=== PATIENT | female | born 1945 | race Caucasian/White ===

== ENCOUNTER 2023-07-15 10:38 | Observation (INO) ==
--- NOTE | 2023-07-15 10:48 | DR.CP ---
HPI Time Seen Time Seen by Provider: 07/15/23 10:47 COVID-19 Coronavirus risk:travel/contact w/high risk person: No Has patient experienced Coronavirus symptoms: No Reviewed Nurses Notes Review: Yes PMH PMH Past Medical History: Anemia (20 days ago diagnosed), Arthritis and Headaches (chronic headaches) Past Surgical History: Yes Surgical History: Hysterectomy Family History Family Medical History: Hypertension Social History Do you use any recreational Drugs:: No PE Vitals Vitals: Vital Signs Temperature 97.9 F Pulse Rate 66 Pulse Rate 68 Pulse Rate 75 Pulse Rate 66 Pulse Rate 65 Pulse Rate 68 Pulse Rate 87 Pulse Rate 73 Pulse Rate 74 Pulse Rate 78 Pulse Rate 78 Pulse Rate 76 Pulse Rate 80 Respiratory Rate 15 Respiratory Rate 18 Respiratory Rate 25 Respiratory Rate 16 Respiratory Rate 14 Respiratory Rate 14 Respiratory Rate 40 Respiratory Rate 13 Respiratory Rate 14 Respiratory Rate 15 Respiratory Rate 14 Respiratory Rate 15 Respiratory Rate 20 Blood Pressure 134/61 Blood Pressure 142/63 Blood Pressure 154/68 O2 Sat by Pulse Oximetry 98 O2 Sat by Pulse Oximetry 98 O2 Sat by Pulse Oximetry 98 O2 Sat by Pulse Oximetry 97 O2 Sat by Pulse Oximetry 97 O2 Sat by Pulse Oximetry 98 O2 Sat by Pulse Oximetry 99 O2 Sat by Pulse Oximetry 96 O2 Sat by Pulse Oximetry 96 O2 Sat by Pulse Oximetry 96 O2 Sat by Pulse Oximetry 98 O2 Sat by Pulse Oximetry 97 O2 Sat by Pulse Oximetry 99 [facility]OR Labs Reviewed 07/16/23 05:08 07/16/23 05:08 Laboratory: WBC 6.4 X10^3/uL (3.6-10.0) 07/15/23 10:52 RBC 4.38 X10^6/uL (3.5-5.4) 07/15/23 10:52 Hgb 13.0 g/dL (12.0-16.0) 07/15/23 10:52 Hct 39.1 % (36.0-47.0) 07/15/23 10:52 MCV 89.2 fL (80.0-100.0) 07/15/23 10:52 MCH 29.8 pg (27.0-34.0) 07/15/23 10:52 MCHC 33.4 g/dL (33.0-35.0) 07/15/23 10:52 RDW 14.4 % (11.6-16.5) 07/15/23 10:52 Plt Count 284 X10^3/uL (150.0-450.0) 07/15/23 10:52 MPV 7.7 fL (7.4-11.0) 07/15/23 10:52 Neut % (Auto) 62.5 % (42.0-75.0) 07/15/23 10:52 Lymph % (Auto) 23.3 % (21.0-51.0) 07/15/23 10:52 Green % (Auto) 9.3 % (0.0-13.0) 07/15/23 10:52 Eos % (Auto) 4.1 % (0.9-2.9) H 07/15/23 10:52 Baso % (Auto) 0.8 % (0.2-1.0) 07/15/23 10:52 Neut # (Auto) 4.0 x10^3/uL (2.2-4.8) 07/15/23 10:52 Lymph # (Auto) 1.5 X10^3/uL (1.3-2.9) 07/15/23 10:52 Green # (Auto) 0.6 x10^3/uL (0.3-0.8) 07/15/23 10:52 Eos # (Auto) 0.3 x10^3/uL (0.0-0.2) H 07/15/23 10:52 Baso # (Auto) 0.1 X10^3/uL (0.0-0.1) 07/15/23 10:52 Absolute Nucleated RBC 0.1 /100WBC 07/15/23 10:52 Sodium 139 mmol/L (136-145) 07/15/23 10:52 Corrected Sodium TNP 07/15/23 10:52 Potassium 3.9 mmol/L (3.5-5.1) 07/15/23 10:52 Chloride 103 mmol/L (98-107) 07/15/23 10:52 Carbon Dioxide 28.2 mmol/L (21-32) 07/15/23 10:52 BUN 21 mg/dL (7-18) H 07/15/23 10:52 Creatinine 1.18 mg/dL (0.55-1.02) H 07/15/23 10:52 Est GFR (MDRD) Af Amer 57 (>60) L 07/15/23 10:52 Est GFR (MDRD) Non-Af 47 (>60) L 07/15/23 10:52 Glucose 94 mg/dL (65-99) 07/15/23 10:52 Calcium 8.8 mg/dL (8.5-10.1) 07/15/23 10:52 Corrected Calcium TNP 07/15/23 10:52 Total Bilirubin 0.20 mg/dL (0.2-1.0) 07/15/23 10:52 AST 21 Units/L (15-37) 07/15/23 10:52 ALT 17 Units/L (12-78) 07/15/23 10:52 Alkaline Phosphatase 51 Units/L (46-116) 07/15/23 10:52 Creatine Kinase 69 Units/L (26-192) 07/15/23 10:52 Troponin I High Sens < 4.0 ng/L (4.0-60.0) L 07/15/23 13:08 B-Natriuretic Peptide 105 pg/mL (0-79) H 07/15/23 10:52 Total Protein 7.9 g/dL (6.4-8.2) 07/15/23 10:52 Albumin 3.5 g/dL (3.4-5.0) 07/15/23 10:52 Globulin 4.4 g/dL (2.5-4.5) 07/15/23 10:52 Albumin/Globulin Ratio 0.8 Ratio (1.1-2.1) L 07/15/23 10:52 Specimen Type Clean catch urine 07/15/23 12:00 Urine Color Straw (YELLOW) 07/15/23 12:00 Urine Appearance Clear (CLEAR) 07/15/23 12:00 Urine pH 5.0 (5.0 - 8.0) 07/15/23 12:00 Ur Specific [place] 1.010 (1.000-1.030) 07/15/23 12:00 Urine Protein Negative (NEGATIVE) 07/15/23 12:00 Urine Glucose (UA) Negative (NEGATIVE) 07/15/23 12:00 Urine Ketones Negative (NEGATIVE) 07/15/23 12:00 Urine Blood Negative (NEGATIVE) 07/15/23 12:00 Urine Nitrite Negative (NEGATIVE) 07/15/23 12:00 Urine Bilirubin Negative (NEGATIVE) 07/15/23 12:00 Urine Urobilinogen Normal (NORMAL) 07/15/23 12:00 Ur Leukocyte Esterase Negative (NEGATIVE) 07/15/23 12:00 XRAY XRAY Interpreted by: Radiologist (Report noted.) Opioid Opioid Risk Tool Total: 0 Total Score Risk Category: Low Risk Copyright: [facility] predicting aberrant behaviors Discharge Plan Diagnosis Discharge Problem: Dizziness, Ataxia Chest pain Qualifiers: Chest pain type: precordial pain Qualified Code(s): R07.2 - Precordial pain Discharge Plan Patient Disposition: ADMITTED INPATIENT Condition: Stable Orders to Discharge Patient Discharge Orders: Discharge (Routine); Ordered 07/16/23 Ordered By: Humberto Tsang
[2023-07-15 10:49] VITALS: BMI 31.6
--- NOTE | 2023-07-15 10:50 | EKG ---
Test Reason : chest Blood Pressure : */* mmHG Vent. Rate : 77 BPM Atrial Rate : 77 BPM P-R Int : 144 ms QRS Dur : 80 ms QT Int : 378 ms P-R-T Axes : 54 48 42 degrees QTc Int : 427 ms Normal sinus rhythm Normal ECG No previous ECGs available Confirmed by Antonio Fletcher MD ([id number]) on 07/16/2023 7:38:32 AM Referred By: Confirmed By: Antonio Fletcher MD
[2023-07-15 11:05] LABS: BASOPHILS # (AUTO) 0.1 X10^3/uL (0.0-0.1); BASOPHILS % (AUTO) 0.8 % (0.2-1.0); EOSINOPHILS # (AUTO) 0.3 x10^3/uL (0.0-0.2); EOSINOPHILS % (AUTO) 4.1 % (0.9-2.9); HEMATOCRIT 39.1 % (36.0-47.0); LYMPHOCYTES # (AUTO) 1.5 X10^3/uL (1.3-2.9); LYMPHOCYTES % (AUTO) 23.3 % (21.0-51.0); MEAN CORPUSCULAR HEMOGLOBIN 29.8 pg (27.0-34.0); MEAN CORPUSCULAR HGB CONC 33.4 g/dL (33.0-35.0); MEAN CORPUSCULAR VOLUME 89.2 fL (80.0-100.0); MEAN PLATELET VOLUME 7.7 fL (7.4-11.0); MONOCYTES # (AUTO) 0.6 x10^3/uL (0.3-0.8); MONOCYTES % (AUTO) 9.3 % (0.0-13.0); NEUTROPHILS % (AUTO) 62.5 % (42.0-75.0); PLATELET COUNT 284 X10^3/uL (150.0-450.0); RED BLOOD COUNT 4.38 X10^6/uL (3.5-5.4); RED CELL DISTRIBUTION WIDTH 14.4 % (11.6-16.5); WHITE BLOOD COUNT 6.4 X10^3/uL (3.6-10.0)
--- NOTE | 2023-07-15 11:05 | RAD ---
EXAM:CHEST, 1 VIEWHISTORY:CHEST PAIN;COMPARISON:01/29/2023TECHNIQUE:CHES T, 1 VIEWFINDINGS:Chest:Lines and tubes: Cardiac leads overlie the chest.Mediastinum: Cardiac and mediastinal shadow is within normal limits for size and contour.Pulmonary vessels: No pulmonary vascular congestion.Lung hcan: No suspicious airspace opacity.Pleura: No effusion. No pneumothorax.Bones and soft tissues: No acute osseous or soft tissue abnormality.IMPRESSION:1. No acute cardiopulmonary abnormalityTHIS IS AN ELECTRONICALLY VERIFIED FINAL REPORT07/15/2023 11:02 AM - Electronically signed by Carmine Graham MD
[2023-07-15 11:24] LABS: ALANINE AMINOTRANSFERASE 17 Units/L (12-78); ALBUMIN 3.5 g/dL (3.4-5.0); ALKALINE PHOSPHATASE 51 Units/L (46-116); ASPARTATE AMINO TRANSFERASE 21 Units/L (15-37); BLOOD UREA NITROGEN 21 mg/dL (7-18); CALCIUM 8.8 mg/dL (8.5-10.1); CARBON DIOXIDE 28.2 mmol/L (21-32); CHLORIDE 103 mmol/L (98-107); CREATINE KINASE 69 Units/L (26-192); CREATININE 1.18 mg/dL (0.55-1.02); GLUCOSE 94 mg/dL (65-99); POTASSIUM 3.9 mmol/L (3.5-5.1); SODIUM 139 mmol/L (136-145); TOTAL PROTEIN 7.9 g/dL (6.4-8.2); eGFR NON BLACK RACES 47 (>60)
--- NOTE | 2023-07-15 12:01 | CT ---
EXAM: BRAIN W/O CON HISTORY: DIZZINESS; COMPARISON: No relevant prior studies were available for comparison at the time of interpretation.. TECHNIQUE: CT images were obtained. Multiplanar reconstructions were created on a separate workstation and used during interpretation. All CT scans at this facility is dose modulation, iterative reconstruction, an d/or weight-based dosing as appropriate to reduce radiation to levels as low as reasonably achievable (ALARA). Postprocessing details, radiation dose, and contrast dose (if applicable) are recorded in t he patient's medical record. FINDINGS: Acute findings: There is no intracranial hemorrhage. No mass effect. No intra-axial or extra-axial fl uid collection. There is no mass. No tentorial, uncal, or tonsillar herniation. Brain volume and white matter: There is diffuse cortical atrophy. There is hypoattenuation in the sup ratentorial white matter consistent with chronic microvascular ischemic disease. Ventricles: No hydrocephalus Midline structures: Pituitary gland and corpus callosum are normal. Posterior fossa and skull base: Cerebellum and posterior fossa are within normal limits. Basal cister ns are not effaced. Sinuses and mastoids: Paranasal sinuses and mastoid air cells are predominantly clear. Globes and Orbits: Bilateral lens implants. Globes are intact. Bony orbits are intact. Extraocular mu scles and retrobulbar fat appear normal. Skull and soft tissues: No depressed skull fracture. Calvarium appears intact. No scalp injury is mago ntified. IMPRESSION: 1. No acute intracranial abnormality THIS IS AN ELECTRONICALLY VERIFIED FINAL REPORT 07/15/2023 11:58 AM - Electronically signed by Carmine Graham MD
[2023-07-15 12:09] LABS: BILIRUBIN,URINE NEGATIVE (NEGATIVE); BLOOD/HEMOGLOBIN,URINE NEGATIVE (NEGATIVE); GLUCOSE, URINE NEGATIVE (NEGATIVE); KETONES,URINE NEGATIVE (NEGATIVE); LEUKOCYTE ESTERASE ,URINE NEGATIVE (NEGATIVE); NITRITES,URINE NEGATIVE (NEGATIVE); PROTEIN,URINE NEGATIVE (NEGATIVE); UROBILINOGEN,URINE NORMAL (NORMAL)
[2023-07-15 12:11] LABS: APPEARANCE,URINE CLEAR (CLEAR); COLOR,URINE STRAW (YELLOW)
[2023-07-15] MEDS: NS 1,000 ML IV 1,000 ML IV SCH (16:00)
[2023-07-15] MEDS ORDERED: CLONAZEPAM 2 MG PO SCH (21:58)
[2023-07-16 06:20] LABS: BASOPHILS # (AUTO) 0.1 X10^3/uL (0.0-0.1); BASOPHILS % (AUTO) 1.3 % (0.2-1.0); EOSINOPHILS # (AUTO) 0.3 x10^3/uL (0.0-0.2); EOSINOPHILS % (AUTO) 5.6 % (0.9-2.9); HEMATOCRIT 36.9 % (36.0-47.0); HEMOGLOBIN 12.4 g/dL (12.0-16.0); LYMPHOCYTES # (AUTO) 1.8 X10^3/uL (1.3-2.9); MEAN CORPUSCULAR HEMOGLOBIN 29.9 pg (27.0-34.0); MEAN CORPUSCULAR HGB CONC 33.6 g/dL (33.0-35.0); MEAN CORPUSCULAR VOLUME 88.9 fL (80.0-100.0); MEAN PLATELET VOLUME 8.1 fL (7.4-11.0); MONOCYTES # (AUTO) 0.7 x10^3/uL (0.3-0.8); MONOCYTES % (AUTO) 13.7 % (0.0-13.0); NEUTROPHILS # (AUTO) 2.2 x10^3/uL (2.2-4.8); NEUTROPHILS % (AUTO) 43.4 % (42.0-75.0); PLATELET COUNT 281 X10^3/uL (150.0-450.0); RED BLOOD COUNT 4.15 X10^6/uL (3.5-5.4); RED CELL DISTRIBUTION WIDTH 14.3 % (11.6-16.5); WHITE BLOOD COUNT 5.1 X10^3/uL (3.6-10.0)
[2023-07-16 06:42] LABS: ALANINE AMINOTRANSFERASE 15 Units/L (12-78); ALBUMIN 3.2 g/dL (3.4-5.0); ALKALINE PHOSPHATASE 52 Units/L (46-116); ASPARTATE AMINO TRANSFERASE 18 Units/L (15-37); BLOOD UREA NITROGEN 19 mg/dL (7-18); CARBON DIOXIDE 25.6 mmol/L (21-32); CHLORIDE 107 mmol/L (98-107); COR CA(FOR HYPOALB) 9.6 mg/dL (8.5-10.1); CREATININE 1.06 mg/dL (0.55-1.02); GLUCOSE 86 mg/dL (65-99); MAGNESIUM 1.9 mg/dL (2.0-2.9); POTASSIUM 4.4 mmol/L (3.5-5.1); SODIUM 142 mmol/L (136-145); TOTAL PROTEIN 7.4 g/dL (6.4-8.2); eGFR NON BLACK RACES 53 (>60)
[2023-07-16] MEDS ORDERED: CONSULT PHARMACY - POTASSIUM & MAGNESIUM XX SCH (08:00)
[2023-07-16] MEDS: PRAVACHOL PO SCH (09:07)
[2023-07-16] MEDS: SYNTHROID 75 mcg TAB PO SCH (09:07)
[2023-07-16] MEDS: LOVENOX INJ 40 MG SYR SC SCH (09:08)
[2023-07-16] MEDS: MAG-OX TAB PO SCH (09:12)
[2023-07-16 09:56] VITALS: RESP 20
[2023-07-16 12:18] VITALS: BP 158/72; PULSE 89; TEMP 98; O2SAT 99
[2023-07-16] MEDS: ULTRAM PO PRN (13:23)
[2023-07-16] MEDS ORDERED: KLONOPIN TAB 1 MG PO SCH (21:00)
--- NOTE | 2023-07-24 12:00 | DR.CARTERS ---
Short Stay Summary - Admission Date Date of Admission: 07/15/23 - Discharge Date Discharge Date: 07/16/23 - Admission Diagnoses (1) Chest pain Status: Acute (2) Dizziness Status: Acute (3) Ataxia Status: Acute (4) HTN (hypertension) Status: Acute (5) Hyperlipidemia Status: Chronic (6) Hypothyroidism Status: Chronic (7) GERD (gastroesophageal reflux disease) Status: Chronic - Discharge Medications Discharge Medications: Home Medication List clonazepam 2 mg tablet 2 mg PO QPM 07/15/23 [History] furosemide 20 mg tablet 20 mg PO BID 07/15/23 [History] Prescriptions: - Hospital Course Hospital Course: IS A 77 YEAR OLD PATIENT OF OURS. SHE PRESENTED TO THE ER WITH COMPLAINTS OF CHEST PAIN X 4 DAYS. PATIENT REPORTED THAT PAIN STARTED IN THE RIGHT SIDE CHEST AND RADIATED TO THE SHOULDERS AND MID BACK. SHE REPORTED THAT PIN HAS BEEN INTERMITTENT. SHE DESCRIBES PAIN DULL. ADDITIONALLY, SHE COMPLAINS OF DIZZINESS. HER MEDICAL HISTORY INCLUDES: GERD, ARTHRITIS, HYPOTHYROIDISM, HYPERLIPIDEMIA, HYSTERECTOMY, KNEE REPLACEMENT, AND LEFT FEMUR SURGERY. ON ARRIVAL TO THE HOSPITAL, HER VITALS WERE: 97.9-80-20-99%-154/68. LABS WERE OBTAINED. WBC 6.4, RBC 4.38, HGB 13.0, HCT 39.1, PLT COUNT 284, SODIUM 139, POTASSIUM 3.9, CHLORIDE 103, CARBON DIOXIDE 28.2, BUN 21, CREATININE 1.18, GLUCOSE 94, CALCIUM 8.8, TOTAL BILI 0.20, AST 21, ALT 17, ALK PHOS 51, CREATINE KINASE 69, TROPONIN <4.0, BNP 105, TOTAL PROTEIN 7.9, ALBUMIN 3.5. A URINALYSIS WAS OBTAINED AND WAS UNREMARKABLE. EKG OBTAINED AND REVEALED NORMAL SINUS RHYTHM WITH HR 77 BPM. A CHEST XRAY WAS OBTAINED AND REVEALED: NO ACUTE CARDIOPULMONARY ABNORMALITY. A BRAIN CT WAS OBTAINED AND REVEALED: NO ACUTE INTRACRANIAL ABNORMALITY. PATIENT WAS ADMITTED TO THE HOSPITAL FOR FURTHER EVALUATION AND TREATMENT OF CHEST PAIN RULE OUT ACUTE AK, DIZZINESS. ON ADMISSION, SHE WAS STARTED ON NORMAL SALINE AT 75 ML/HR, LOVENOX 40MG SC DAILY, CLONAZEPAM 2MG HS, LEVOTHYROXINE 75MG DAILY, PRAVASTATIN 40MG DAILY, TRAMADOL 50MG PO Q4H PRN. WE PLANNED TO REPEAT SERIAL CARDIAC ENZYMES AND EKGS. OTHE RWISE, WE PLANNED TO FOLLOW-UP WITH AM LAB AND CONTINUE TO MONITOR. ON THE MORNING FOLLOWING ADMISSION, PATIENT IS ALERT AND ORIENTED, LYING IN BED ON MORNING ROUNDS. SHE DENIES CHEST PAIN OR DIZZINESS AT THE PRESENT TIME. NURSING STAFF REPORTS THAT SHE HAS HAD AN UNEVENTFUL NIGHT. ON EXAMINATION, HEART IS REGULAR IN RATE AND RHYTHM. BILATERAL LUNGS ARE CLEAR TO AUSCULTATION. ABDOMEN IS ROUND, SOFT, AND NON-TENDER WITH NORMAL BOWEL SOUNDS NOTED IN ALL QUADRANTS. GOOD RANGE OF MOTION NOTED TO UPPER AND LOWER EXTREMITIES WITH NO EDEMA NOTED. HER VITALS THIS MORNING WERE: 97.6-80-20-98%-173/74. LABS WERE OBTAINED. WBC 5.1, RBC 4.15, HGB 12.4, HCT 36.9, PLT COUNT 281, SODIUM 142, POTASSIUM 4.4, CHLORIDE 107, CARBON DIOXIDE 25.6, BUN 19, CREATININE 1.06, GLUCOSE 86, CALCIUM 9.0, MAGNESIUM 1.9, TOTAL BILI 0.30, AST 18, ALT 15, ALK PHOS 52, TOTAL PROTEIN 7.4, ALBUMIN 3.2. CARDIAC ENZYMES HAVE BEEN WITHIN NORMAL LIMITS. NO CHANGES NOTED TO EKGS. AN ECHOCARDIOGRAM WAS OBTAINED AND REVEALED AN EJECTION FRACTION OF 69%, RVSP 9mmHg. WE PLANNED FOR DISCHARGE. INSTRUCTIONS FOR MEDICATIONS AND FOLLOW-UP WERE DISCUSSED WITH PATIENT. SHE WAS INSTRUCTED TO CONTINUE HER CURRENT MEDICATIONS WITH NO CHANGES MADE TO DOSAGES AND TO FOLLOW- UP IN THE OFFICE ON 07/23/23. PATIENT WAS DISCHARGED HOME WITH FAMILY IN STABLE CONDITION. TIME SPENT ON CLINICAL ASSESSMENT, REVIEWING LABS AND IMAGING, DECISION MAKING, DISCHARGE INSTRUCTIONS, PREPARING DISCHARGE PAPERS, AND DOCUMENTATION GREATER THAN 75 MINUTES. - Discharge Plan Disposition: 01 HOME, SELF-CARE Condition: Stable - Follow up/Referrals Follow up/Referrals: Humberto Tsang [Primary Care Provider] - 07/23/23 1:30 pm - Instructions Instructions: Nonspecific Chest Pain, Adult, [id number], Dizziness, [id number] Forms: Post Hospital Follow Up Care
== END 2023-07-16 16:02 | disposition home or self-care (01) ==
LOC: U 10:38 → MED/SURG 10:38 → ER 10:38 → MED/SURG 15:35
PROVIDERS: ADMIT Internal Medicine; ATTEND Internal Medicine
DX: K21.9 Gastro-esophageal reflux disease without esophagitis; E78.2 Mixed hyperlipidemia; R42 Dizziness and giddiness; I10 Essential (primary) hypertension; R27.8 Other lack of coordination; R07.89 Other chest pain; E03.8 Other specified hypothyroidism